=== PATIENT | female | born 2005 | race Caucasian/White ===

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

== ENCOUNTER 2023-02-26 09:50 | Outpatient (REF) | payer OTHER, SELFPAY ==
[2023-02-26 12:12] LABS: Appearance Urine Clear; Color Urine Yellow; Glucose Urine UA Negative (Negative); Leukocyte Esterase Urine Negative (Negative); Nitrite Urine Negative (Negative); PH 8.5 (5.0-9.0); Specific Gravity - Urine 1.015 (1.005-1.025); UMIC TRIGGER UA YES; Urine Blood Moderate (2+) (Negative); Urine Ketones Negative (Negative); Urine Protein Negative (Neg-Trace)
[2023-02-26 12:21] LABS: Bacteria Urine None Seen (None Seen); Hyaline Casts Urine 0-2 /LPF (0-2); RBC Urine 0-2 /HPF (0-2); WBC Urine 0-5 /HPF (0-5)
[2023-02-26 12:29] LABS: Alanine Aminotransferase 14 U/L (0-31); Alkaline Phosphatase 77 U/L (39-117); Anion Gap 11 (12-20); Aspartate Amino Transferase 15 U/L (5-31); Bilirubin Total 0.7 mg/dL (0.0-1.0); Blood Urea Nitrogen 8 mg/dL (9-16); Calcium 8.7 mg/dL (8.4-10.2); Carbon Dioxide 26 mmol/L (22-29); Chloride 108 mmol/L (96-108); Estimated Glomerular Filt Rate > 60; Glucose Fasting 76 mg/dL (60-99); Sodium 141 mmol/L (135-145); Total Protein 6.5 g/dL (6.5-8.0)
[2023-02-26 13:22] LABS: Creatinine Urine 89.31 mg/dL; Microalbum/Creatinine Ratio Ur 7.8 ug/mg cr
[2023-02-26 13:25] LABS: Estimated Average Glucose 88 mg/dL; Hemoglobin A1c % 4.7 %
== END 2023-02-26 09:51 | disposition home or self-care (01) ==
LOC: HO.WFDLDS 09:50
PROVIDERS: Visit Provider Family Medicine
DX: Z00.00 Encounter for general adult medical examination without abnormal findings (principal); E28.2 Polycystic ovarian syndrome; R73.01 Impaired fasting glucose; I10 Essential (primary) hypertension
CPT/HCPCS: 36415; 80053; 81001; 81003; 82043; 83036

== ENCOUNTER 2023-10-15 14:42 | Outpatient (AMB) | payer OTHER, SELFPAY ==
--- NOTE | 2023-10-15 14:49 | A.OFFVIS_ITS ---
Intake Intake Visit Reasons: control consult Linen Room Attendant Required: No Allergies No Known Drug Allergies Allergy (Verified 10/15/23 14:49) Unknown Medication List - Last Reconciled 10/15/23 by Saniya Tse CNM cholecalciferol (vitamin D3) 50 mcg PO DAILY 28 days citalopram 10 mg PO DAILY 30 days Is last menstrual period known: Yes Last menstrual period: 10/14/23 Post menopausal: No HPI control consult HPI Details This is a tele visit that is being done by phone. The patient was scheduled with me at [facility] for control consult however she went to the [facility] OBGYN office instead and the visit was converted to a tele visit to accommodate the patient's need to talk about her control desires. She was not able to do a tele visit by video because she said she was in a car and she said she could not talk in so much detail because there were other people in the car but she did want to at least talk about the basics she said she absolutely wanted a Nexplanon for control and she said she already knew about the side effects and I did review them with her and they mainly include changes to how 1 feels in terms of ones mood and overall sense of self as well as weight gain changes. She said she was okay with that and I also touched on the bleeding side effect changes I told her that if she really wanted this it should absolutely be inserted in the 1st few days of her menstrual cycle while she is bleeding with her period, but that 1st she would need to sign a consent form that allows her insurance company to order the Nexplanon to us. When it arrives at the hospital we will call her and then after that she would call us the day she starts her. Will hopefully get her in the next day or the day after for insertion of her the Nexplanon she did not have any other questions. I told her that she could sign the form either at the main OBGYN office at the [facility] or at our [facility] satellite office any time from 9 to about 3:30. [facility] Medical History PTSD (post-traumatic stress disorder) Social History Household Members: Friend(s) Housing: Apartment Do you presently have visiting nurse or other home services: No Patient Tobacco Use Status: Never used Tobacco e-Cigarette/Vaping Use: Never Used Second Hand Smoke Exposure: No service: No Current occupational status: employed Current occupational exposures/hazards: No Cognitive needs: No Hearing needs: No Vision needs: No Female Reproductive History Menstrual Age of Menarche: 7 Date of last menstrual period: 10/14/23 control method: none Assessment & Plan Assessment & Plan (1) PCOS (polycystic ovarian syndrome): Code(s): E28.2 - Polycystic ovarian syndrome (2) control counseling: Comment: 10/15/23-pt desires nexplanon Code(s): Z30.09 - Encounter for other general counseling and advice on contraception Plan This is a tele visit that is being done by phone. The patient was scheduled with me at [facility] for control consult however she went to the [facility] OBGYN office instead and the visit was converted to a tele visit to accommodate the patient's need to talk about her control desires. She was not able to do a tele visit by video because she said she was in a car and she said she could not talk in so much detail because there were other people in the car but she did want to at least talk about the basics she said she absolutely wanted a Nexplanon for control and she said she already knew about the side effects and I did review them with her and they mainly include changes to how 1 feels in terms of ones mood and overall sense of self as well as weight gain changes. She said she was okay with that and I also touched on the bleeding side effect changes I told her that if she really wanted this it should absolutely be inserted in the 1st few days of her menstrual cycle while she is bleeding with her period, but that 1st she would need to sign a consent form that allows her insurance company to order the Nexplanon to us. When it arrives at the hospital we will call her and then after that she would call us the day she starts her. Will hopefully get her in the next day or the day after for insertion of her the Nexplanon she did not have any other questions. I told her that she could sign the form either at the main OBGYN office at the [facility] or at our [facility] satellite office any time from 9 to about 3:30. Telehealth Telehealth Location of provider rendering services: practice address Location of patient: other Patient Identification confirmed using: Name, : Yes Telehealth method: video Patient verbally consented to treatment: Yes Patient verbally consented to billing insurance company: Yes Patient informed of any privacy concerns related to visit: Yes Coding Level of Care Code Tele Est Pt Level 3 (59103) Diagnoses PCOS (polycystic ovarian syndrome) E28.2 control counseling Z30.09 Time Spent (min) 18 Comment 2 cr/ 6 speaking w pt/10 charting
== END 2023-10-15 15:51 | disposition home or self-care (01) ==
LOC: HO.HWSM 14:42
PROVIDERS: PCP Family Medicine; Visit Provider Advanced Practice Midwife
DX: E28.2 Polycystic ovarian syndrome (principal); Z30.09 Encounter for other general counseling and advice on contraception
CPT/HCPCS: 99213

== ENCOUNTER → 2023-10-15 14:42 | Outpatient (BNVA) | payer OTHER, SELFPAY | PROVIDERS: PCP Family Medicine; Visit Provider Advanced Practice Midwife ==

== ENCOUNTER 2023-12-22 10:11 | Emergency (ER) | payer OTHER, SELFPAY ==
--- NOTE | ~2023-12-22 | US_ITS ---
EXAMINATION: US EXTREMITY, NONVASCULAR CLINICAL INFORMATION: Pain COMPARISON: X-ray of the right foot from the same day TECHNIQUE: Grayscale and color imaging of the medial arch of the right foot in the area of pain FINDINGS: There is an enlarged or swollen adductor hallucis muscle. There may be a small amount of surrounding fluid. US/US extremity nonvascular IMPRESSION: Enlarged or swollen adductor hallucis muscle. Findings would be better evaluated with MRI if symptoms persist.
--- NOTE | ~2023-12-22 | XR_ITS ---
EXAMINATION: XR FOOT, RIGHT CLINICAL INFORMATION: Worsening Right foot pain COMPARISON: Right foot x-ray on 12/18/2023 TECHNIQUE: AP, lateral, and oblique views of the right foot. FINDINGS: BONES: Bony structures are intact. There is no focal bone destruction or periosteal reaction seen. JOINTS: Alignment of joints is normal. SOFT TISSUE: Soft tissue is normal. No radiopaque foreign body or abnormal air collection is seen. XR/XR foot RT 2V IMPRESSION: 1. Unchanged Normal x-rays of right foot. No fracture or dislocation or signs of osteomyelitis are found.
--- NOTE | ~2023-12-22 | US_ITS ---
EXAMINATION: US EXTREMITY, NONVASCULAR CLINICAL INFORMATION: Achilles pain. COMPARISON: X-ray from the same day. TECHNIQUE: Grayscale and color imaging of the Achilles tendon using a linear transducer. FINDINGS: The Achilles tendon is normal in size, contour and echotexture. No abnormal fluid collection adjacent to the Achilles tendon seen. US/US extremity nonvascular IMPRESSION: Unremarkable examination.
[2023-12-22 11:37] VITALS: BP 117/58; PULSE 89; RESP 18; TEMP 36.7; O2SAT 100; BMI 36.8
--- NOTE | 2023-12-22 11:37 | ED.GENADULT ---
HPI - General Adult General Chief complaint: Extremity Injury, Lower Stated complaint: Chronic R Foot Pain No Injury Time Seen by Provider: 12/22/23 11:57 Source: patient Mode of arrival: ambulatory Limitations: no limitations History of Present Illness HPI narrative: 18-year-old female presents with of right-sided foot pain atraumatic since Wednesday, patient was seen at [place] told she had plantar fasciitis given a walking boot pain has been worsening ever since then. Patient reports that her right foot particularly in the middle aspect is red, hard and very painful. She reports significant discomfort with range of motion of foot. Patient has been using crutches and crawling around to get from place to place. Denies numbness and tingling. No blunt trauma. Denies fevers, chills, chest pain, shortness breath, nausea, vomiting, abdominal pain, headache, vision changes, dizziness and weakness. Patient does report she typically walks on her Tippy toes Related Data Previous Rx's Medication Instructions Recorded cholecalciferol (vitamin D3) 50 50 mcg PO DAILY 28 days #28 caps 08/17/22 mcg (2,000 unit) capsule citalopram 10 mg tablet 10 mg PO DAILY 30 days #30 tabs 04/23/23 cephalexin 500 mg tablet 500 mg PO Q6H 7 days #28 tabs 12/22/23 ketorolac 10 mg tablet 10 mg PO TID PRN pain 5 days #15 12/22/23 tabs Allergies Allergy/AdvReac Type Severity Reaction Status Date / Time No Known Drug Allergies Allergy Unknown Verified 10/15/23 14:49 Review of Systems Review of Systems: Yes all other systems are reviewed and are negative [facility] Past Medical History Attestation statement: The following information was validated with the patient. Source: old records reviewed and nursing notes reviewed Medical History PTSD (post-traumatic stress disorder) Social History Social History Household Members: Friend(s) Housing: Apartment Do you presently have visiting nurse or other home services: No Patient Tobacco Use Status: Never used Tobacco e-Cigarette/Vaping Use: Never Used Second Hand Smoke Exposure: No Advance Directives: No Advance Directives Information Provided: No service: No Current occupational status: employed Current occupational exposures/hazards: No Cognitive needs: No Hearing needs: No Vision needs: No Physical Exam ED Vital Signs: Vital Signs - 24 hr 12/22/23 11:37 Temperature 98.1 F Pulse Rate 89 Respiratory Rate 18 Blood Pressure 117/58 L Pulse Oximetry 100 Oxygen Delivery Method Room Air BMI result Body Mass Index 36.8 vss Appearance: Alert.? Oriented X3.? No acute distress.? Head: Normocephalic, atraumatic, no step-offs or deformities Eyes: Pupils equal, round and reactive to light.? Neck: Normal inspection.? Neck supple.? CVS: Normal heart rate and rhythm.? Pulses normal.? Respiratory: No respiratory distress.? Breath sounds normal.? Skin: Skin warm and dry.? Normal skin color.? Normal skin turgor.? Extremities: No lower extremity edema.? No calf ttp. 5/5 strength to bilateral upper and lower extremities + 2+ Dp,AT,PT pulses equal and b/l discoloration to right medial aspect of foot with overlying TTP and induration. Normal sensation distally. Cap refil < 2 seconds. Back: No midline tenderness, no C-spine tenderness, full range of motion, no CVA tenderness bilaterally Neuro: Oriented X 3.? No motor deficit.? No sensory deficit. CN 2-12 intact Course Course Course Narrative: This is an RME: Additional HPI, ROS, PE not included below will be deferred to primary provider. This is a [age]-female presenting to the ER with complaints of right foot pain x 6 days. She was seen at [facility] 6 days where she was diagnosed with plantar fasciitis. She states that her foot is becoming more swollen and painful. She was prescribed baclofen and prednisone which he has been taking for several days without any relief. Patient has exquisite tenderness to the plantar aspect of her foot with induration and swelling. Plan: X-ray, basic labs Reevaluation(s) Reevaluation #1: White count of 15.0 with shift. Chemistry unremarkable. Normal CRP. ESR pending. Ultrasound pending. Time: 13:03 Reevaluation #2: X-ray of foot unchanged, normal x-rays of right foot. No fracture dislocation. No signs of osteomyelitis. Patient evaluated by my attending who agrees patient should be followed by Podiatry, as soon as possible. I also did discuss this case with ortho ELICIA Stewart who tells me unsure what this could be, recommends nonweightbearing, crutches, boot. And ortho follow-up. Time: 14:26 Medications Administered Discontinued Medications Generic Name Dose Route Start Last Admin Trade Name Rakeshq PRN Reason Stop Dose Admin Ketorolac Tromethamine 30 mg 12/22/23 12:40 12/22/23 13:03 Ketorolac Tromethamine 30 Mg/Ml Vial IM 12/22/23 12:41 30 mg ONCE ONE Administration Medical Decision Making Medical Decision Making [facility] Narrative: 1259 18 year old female presents w/ atruamatic r foot pain since wednesday. PE w/ No lower extremity edema.? No calf ttp. 5/5 strength to bilateral upper and lower extremities + 2+ Dp,AT,PT pulses equal and b/l discoloration to right medial aspect of foot with overlying TTP and induration. Normal sensation distally. Cap refil < 2 seconds. Hx and PE concerning for ligament or tendon tear vs contusion vs cellulitis. Less likely arterial or vascular occlusion. Unlikely NV compromise, fx, dislocation, necrotizing infection Plan- imaging, labs. Differential Diagnosis Differential Diagnoses: The differential diagnosis associated with the presentation includes Hx and PE concerning for ligament or tendon tear vs contusion vs cellulitis. Less likely arterial or vascular occlusion. Unlikely NV compromise, fx, dislocation, necrotizing infection Admission/Observation Consideration of admission/observation: Escalation of care including admission/observation considered Lab Data [facility] Lab Attestation statement: I reviewed the patient's lab results. 12/22/23 12:23 12/22/23 12:23 Labs: Lab Results 12/22/23 Range/Units 12:23 WBC 15.0 H (4.8-10.8) X10*3/uL RBC 5.16 (4.20-5.50) X10*6/uL Hgb 14.7 (12.0-16.0) g/dl Hct 42.3 (37.0-47.0) % MCV 82.0 (80.0-98.0) fL MCH 28.5 (27.0-33.0) pg MCHC 34.8 (31.0-35.0) g/dl RDW 13.8 (11.0-16.0) % Plt Count 322 (160-400) X10*3/uL MPV 9.1 L (9.4-12.3) fL Immature Gran % (Auto) 0.3 (0.0-0.4) % Neut % (Auto) 90.4 H (45-73) % Lymph % (Auto) 8.0 L (20-40) % [place] % (Auto) 1.1 L (2-11) % Eos % (Auto) 0.1 (0-4) % Baso % (Auto) 0.1 (0-2) % Lymph # (Auto) 1.2 (1.2-4.9) X10*3/uL [place] # (Auto) 0.2 (0.1-1.2) X10*3/uL Eos # (Auto) 0.0 (0.0-0.4) X10*3/uL Baso # (Auto) 0.0 (0.0-0.2) X10*3/uL Abs Immat Gran (auto) 0.05 H (0.00-0.03) X10*3/uL Absolute Neuts (auto) 13.6 H (2.0-8.3) x10*3/uL Absolute Nucleated RBC 0.000 (0.0-0.012) X10*3/uL Nucleated RBC % (auto) 0.0 (0.0-0.2) /100WBC Smear Tech's Comments VERIFIED ESR 5 (0-20) MM/HR PT 13.2 (11.1-13.3) SEC INR 1.1 (0.9-1.1) Sodium 141 (135-145) mmol/L Potassium 3.6 (3.3-5.1) mmol/L Chloride 111 H (96-108) mmol/L Carbon Dioxide 23 (22-29) mmol/L Anion Gap 11 L (12-20) BUN 13 (9-16) mg/dL Creatinine 0.70 (0.5-1.4) mg/dL Estim Creat Clear Calc 109.2 Estimated GFR > 60 Random Glucose 109 (60-115) mg/dL Uric Acid 3.2 (2.4-5.7) mg/dL Calcium 8.9 (8.4-10.2) mg/dL Total Bilirubin 0.5 (0.0-1.0) mg/dL Direct Bilirubin 0.1 (0.0-0.5) mg/dL AST 31 (5-31) U/L ALT 27 (0-31) U/L Alkaline Phosphatase 62 (39-117) U/L C-Reactive Protein < 0.10 (< or = 0.50) mg/dL Total Protein 7.4 (6.5-8.0) g/dL Albumin 4.3 (3.5-5.0) g/dL Independent Interpretation I performed an independent interpretation of an: Ultrasound Radiology Impression Discussion of test interpretation with radiology: I have reviewed the radiologist's reading. Critical Care Time Critical Care Time Critical Care Time: Yes Total Critical Care Time: 35 Attestation: I attest to this time spent taking care of the patient, obtaining history, physical, reviewing labs, imaging, speaking to my attending, speaking to specialist. Discharge Plan Discharge Clinical Impression: Acute pain of right foot, Enlarged muscle Patient Disposition: Home, Self-Care Instructions: Arthralgia (ED) Additional Instructions: Take your medications as prescribed. If you were prescribed antibiotics today, it is important that you take your medication to their entirety, do not skip any doses, do not finish them early. Follow-up with your primary care provider this week. Return to the emergency department with new or worsening symptoms. Such as fevers, chills, chest pain, shortness of breath, nausea, vomiting, dizziness, headache, vision changes, lethargy In case of emergency call 911 Follow up with podiatry and ortho Toradol has been sent to your pharmacy, you tolerated this well in the department. Please take this as prescribed do not take this with ibuprofen, or other NSAIDs, do not mix this with alcohol. Side effects of this medication including increased risk for bleeding and possible kidney injury. [facility] [address] [place] [id number] Prescriptions: New ketorolac 10 mg tablet 10 mg PO TID PRN (Reason: pain) 5 Days Qty: 15 0RF cephalexin 500 mg tablet 500 mg PO Q6H 7 Days Qty: 28 0RF No Action citalopram 10 mg tablet 10 mg PO DAILY 30 Days Qty: 30 2RF cholecalciferol (vitamin D3) 50 mcg (2,000 unit) capsule 50 mcg PO DAILY 28 Days Qty: 28 4RF Referrals: [facility] [Provider Group] - 1 day Jaxson Edwards MD [Primary Care Provider] - 2 days Stand Alone Forms: Work/School Release
[2023-12-22 12:31] LABS: Basophils Percent Auto 0.1 % (0-2); Eosinophils Percent Auto 0.1 % (0-4); Hematocrit 42.3 % (37.0-47.0); Hemoglobin 14.7 g/dl (12.0-16.0); Imm Gran Abs Auto 0.05 X10*3/uL (0.00-0.03); Imm Gran Pct Auto 0.3 % (0.0-0.4); Lymphocytes Absolute Auto 1.2 X10*3/uL (1.2-4.9); MANUAL DIFF FLAG SCAN; Mean Corpuscular HGB Conc 34.8 g/dl (31.0-35.0); Mean Corpuscular Hemoglobin 28.5 pg (27.0-33.0); Mean Platelet Volume 9.1 fL (9.4-12.3); Monocytes Absolute Auto 0.2 X10*3/uL (0.1-1.2); Monocytes Percent Auto 1.1 % (2-11); Neutrophils Absolute Auto 13.6 x10*3/uL (2.0-8.3); Neutrophils Percent Auto 90.4 % (45-73); Platelet Count 322 X10*3/uL (160-400); Red Blood Count 5.16 X10*6/uL (4.20-5.50); Red Cell Distribution Width 13.8 % (11.0-16.0); SCAN SMEAR FLAG 1
[2023-12-22 12:41] LABS: INTERNATIONAL NORM RATIO 1.1 (0.9-1.1); Prothrombin Time 13.2 SEC (11.1-13.3)
[2023-12-22 12:46] LABS: Alanine Aminotransferase 27 U/L (0-31); Albumin Level 4.3 g/dL (3.5-5.0); Alkaline Phosphatase 62 U/L (39-117); Anion Gap 11 (12-20); Aspartate Amino Transferase 31 U/L (5-31); Bilirubin Direct 0.1 mg/dL (0.0-0.5); Bilirubin Total 0.5 mg/dL (0.0-1.0); Blood Urea Nitrogen 13 mg/dL (9-16); C Reactive Protein < 0.10 mg/dL (< or = 0.50); Calcium 8.9 mg/dL (8.4-10.2); Carbon Dioxide 23 mmol/L (22-29); Chloride 111 mmol/L (96-108); Creatinine Clr Calc Pharmacy 109.2; Estimated Glomerular Filt Rate > 60; Glucose Random 109 mg/dL (60-115); Potassium 3.6 mmol/L (3.3-5.1); Sodium 141 mmol/L (135-145); Total Protein 7.4 g/dL (6.5-8.0); Uric Acid 3.2 mg/dL (2.4-5.7)
[2023-12-22 12:50] LABS: SLIDE REVIEW VERIFIED
[2023-12-22] MEDS: Ketorolac Tromethamine 30 MG/ML VIAL IM (13:03)
[2023-12-22 14:03] LABS: Erythrocyte Sedimentation Rate 5 MM/HR (0-20)
[2023-12-22 16:24] VITALS: BP 113/70; PULSE 86; RESP 16; TEMP 37.1; O2SAT 98
== END 2023-12-22 16:26 | disposition home or self-care (01) ==
PROVIDERS: Physician Assistant; Physician Assistant Medical; Emergency Provider Student in an Organized Health Care Education/Training Program; PCP Family Medicine
DX: M79.671 Pain in right foot (principal); M72.2 Plantar fascial fibromatosis; M79.89 Other specified soft tissue disorders
CPT/HCPCS: 36415; 73620; 76882; 80048; 80076; 84550; 85025; 85610; 85652; 86140; 96372; 99283; 99284; J1885

== ENCOUNTER 2024-04-26 15:15 | Outpatient (AMB) | payer OTHER, SELFPAY ==
--- NOTE | 2024-04-26 15:24 | MHC.PC.OV ---
Vital Signs 04/26/24 15:27 Height 4 ft 9 in Weight 177 lb 2 oz BMI 38.3 BP 112/72 Blood Pressure Location Lt brachial Position Sitting Respiration 14 Pulse 88 Pulse Source Pulse Oximeter Temp 98.2 F Temp Source Temporal Artery Scan Pulse Oximetry (%) 99 Oxygen Delivery Method Room Air Intake Visit Reasons: CPE medicaid ride renewal Intake Note: Physical Pad Machine Operator Required: No Is last menstrual period known: Yes Last menstrual period: 04/26/24 Allergies No Known Drug Allergies Allergy (Verified 04/26/24 15:25) Unknown Medication List - Last Reconciled 04/26/24 by Viri Ceja PA-C cholecalciferol (vitamin D3) 50 mcg PO DAILY 28 days citalopram 10 mg PO DAILY 30 days Tobacco use date assessed: 11/27/22 HPI CPE medicaid ride renewal HPI Details Pt is a 18 y/o female who presents today for a cpe. Psych: She is on celexa 10 mg for anxiety and depression. She states it is very helpful. She denies any SI/HI. She has been on this for 1.5 years. She would like to see a therapist/psychiatrist for possible diagnosis of ADD. She states that she has difficulty concentrating. Celexa has been helpful. Endo: has a hx of pcos and was previously on metformin. 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[employer] [facility] Medical History PTSD (post-traumatic stress disorder) Social History (Updated 04/26/24 @ 15:27 by Radha Naranjo CMA) Household Members: Friend(s) Housing: Apartment Do you presently have visiting nurse or other home services: No Patient Tobacco Use Status: Never used Tobacco e-Cigarette/Vaping Use: Never Used Second Hand Smoke Exposure: No service: No Current occupational status: employed Current occupational exposures/hazards: No Cognitive needs: No Hearing needs: No Vision needs: No Female Reproductive History Menstrual Age of Menarche: 7 Date of last menstrual period: 04/26/24 Questionnaire PHQ-9 Over the last 2 weeks, how often have you been bothered by any of the following problems? 1. Little interest or pleasure in doing things: not at all 2. Feeling down, depressed, or hopeless: not at all 3. Trouble falling or staying asleep, or sleeping too much: several days 4. Feeling tired or having little energy: several days 5. Poor appetite or overeating: more than half the days 6. Feeling bad about yourself - or that you are a failure or have let yourself or your family down: not at all 7. Trouble concentrating on things, such as reading the newspaper or watching television: several days 8. Moving or speaking so slowly that other people could have noticed. Or the opposite - being so fidgety or restless that you have been moving around a lot more than usual: several days 9. Thoughts that you would be better off or of hurting yourself in some way: not at all Total score: 6 Depression Screening Interpretation: Positive Depression Screening Done: Yes 58440 - PHQ-9 Billing: Yes Source: Developed by Drs. Jh Nelson, Catalina Graham, Akash Singer and colleagues, with an educational silvio from [employer]. Thrive Questionnaire Date Thrive assessed: 04/26/24 I am a: Patient What is your living situation today?: I have a steady place to live Within the past 12 months, did the food you bought not last and you didn't have the money to get more?: Sometimes True Within the past 12 months, did you worry whether your food would run out before you got money to buy more?: Sometimes True Do you have trouble paying for medicines?: Yes Do you have trouble getting transportation to medical appointments?: Yes Do you have trouble paying your heating and electricity bill?: No Do you have trouble taking care of your child, family member or friend?: No Do you have trouble with day-to-day activities such as bathing, preparing meals, shopping, managing finances, etc.?: No Are you currently unemployed and looking for a job?: No Are you interested in more education?: Yes Please select the resources that you would like help with: Food, Paying for medicine, Transportation, Utilities and Education Currently or been in a relationship where the following occur: No concerns reported THRIVE Score: 3 AUDIT C Alcohol Use Questionnaire (AUDIT-C) 1. How often do you have a drink containing alcohol?: Monthly or less 2. How many drinks containing alcohol do you have on a typical day when you are drinking?: 1 or 2 3. How often do you have six or more drinks on one occasion?: Never Total Score: 1 KATIUSKA-7 AMB Questionnaire KATIUSKA-7 Date KATIUSKA - 7 assessed: 11/27/22 Feeling nervous, anxious, or on edge: 0 = Not at all Not being able to stop or control worryin = Not at all Worrying too much about different things: 1 = Several days Trouble relaxin = Several days Being so restless that it is hard to sit still: 0 = Not at all Becoming easily annoyed or irritable: 2 = More than half the days Feeling afraid as if something awful might happen: 0 = Not at all Total KATIUSKA-7 score (0-4 normal; 5-9 mild; 10-14 moderate; 15-21 severe): 4 Source: Developed by Drs. Jh Nelson, Catalina Graham, Akash Singer and colleagues, with an educational silvio from [employer]. KATIUSKA-7 Assessment Billing KATIUSKA-7 Assessment Tool: KATIUSKA-7 Assessment 78140 Physical exam (Primary Care) Vital Signs: Last Vital Signs Temp 98.2 F 04/26/24 15:27 Pulse 88 04/26/24 15:27 Resp 14 04/26/24 15:27 BP 112/72 04/26/24 15:27 Pulse Ox 99 04/26/24 15:27 Oxygen Delivery Method Room Air 04/26/24 15:27 BMI result Body Mass Index 38.3 Tobacco/Smoking Status: Tobacco use Status Tobacco use date assessed 11/27/22 04/26/24 15:29 Patient Tobacco Use Status Never used Tobacco 04/26/24 15:29 e-Cigarette/Vaping Use Never Used 04/26/24 15:29 PHQ-9: PHQ-9 Score PHQ-9: Total score 6 04/26/24 15:35 Depression Screening Interpretation: Positive Thrive Assessment: Date of Thrive Assessment Date Thrive assessed 04/26/24 04/26/24 15:35 Currently or been in a relationship where the following occur: No concerns reported Const Orientation/consciousness: patient oriented x3 HENMT Ears: hearing grossly normal bilaterally and TM's normal bilaterally General nose exam: No nasal polyps present Face and sinus: Yes sinuses nontender Mouth: Normal oral and palatal mucosa present Eyes Pupils: Equal, round and reactive pupils present EOM: EOMs intact bilaterally Neck Neck: Yes full ROM and Yes no lymphadenopathy Thyroid: Thyroid normal Chest Chest palpation & inspection: normal inspection of the chest Resp Auscultation: clear to auscultation bilaterally Cardio Rate: regular rate Rhythm: regular rhythm Heart sounds: S1 normal heart sound present and S2 normal heart sound present Peripheral pulses: Peripheral pulses 2+ throughout GI Other: Soft, nontender Auscultation: normal bowel sounds Rectal Exam - Female: deferred General: Yes no CVA tenderness Back/Spine/Pelvis Other: Nontender Back: no CVA tenderness Skin General skin exam: no rashes or lesions noted Neuro General: patient oriented x3, gait normal, CN's II-XI intact bilaterally and deep tendon reflexes 2+ bilaterally Cranial nerves: Yes Equal, round and reactive pupils present Motor exam (neuro): 5/5 motor strength present throughout Sensory Exam: double simultaneous stimulation for sensation normal Coordination: [id number] test normal and Romberg test negative Extrem General: Yes normal to inspection and Yes full ROM Psych Affect: normal affect Attitude: cooperative Thought process: Normal thought process present Thought content: Normal thought content present Insight: Good insight present (Psych) Judgement: Good judgement present (Psych) Assessment and Plan Assessment & Plan (1) Routine general medical examination at a health care facility: Code(s): Z00.00 - Encounter for general adult medical examination without abnormal findings Plan: Health maintenance reviewed. Labs ordered today. (2) Depression with anxiety: Code(s): F41.8 - Other specified anxiety disorders Plan: Continue Celexa. Referral to Behavioral Health. (3) Difficulty concentrating: Code(s): R41.840 - Attention and concentration deficit Plan: As above. Endorses mild improvement with Celexa. (4) PCOS (polycystic ovarian syndrome): Code(s): E28.2 - Polycystic ovarian syndrome Plan: Continue following with medical appointment scheduler. We will start on metformin. Orders: Orders Lipid Panel Today E28.2 - Polycystic ovarian syndrome, E66.9 - Obesity, unspecified, F41.8 - Other specified anxiety disorders Comprehensive [place]. Panel Fast Today E28.2 - Polycystic ovarian syndrome, E66.9 - Obesity, unspecified, F41.8 - Other specified anxiety disorders Complete Blood Count Auto Diff Today E28.2 - Polycystic ovarian syndrome, E66.9 - Obesity, unspecified, F41.8 - Other specified anxiety disorders TSH reflex Free T4 Today E28.2 - Polycystic ovarian syndrome, E66.9 - Obesity, unspecified, F41.8 - Other specified anxiety disorders Hemoglobin A1c Today E28.2 - Polycystic ovarian syndrome, E66.9 - Obesity, unspecified, F41.8 - Other specified anxiety disorders Referrals Behavioral Health Referral F41.8 - Other specified anxiety disorders, R41.840 - Attention and concentration deficit Medications: New metformin ER 500 mg PO DAILY 90 tabs 2RF Coding Level of Care Code Est Pt Prev Care 18-39y(74114) Diagnoses Routine general medical examination at a health care facility Z00.00 Depression with anxiety F41.8 Difficulty concentrating R41.840 PCOS (polycystic ovarian syndrome) E28.2 Additional Codes KATIUSKA-7 Assessment Billing - KATIUSKA-7 Assessment Tool: KATIUSKA-7 Assessment 61353 ([id number])
[2024-04-26 15:27] VITALS: BP 112/72; PULSE 88; RESP 14; TEMP 36.8; O2SAT 99; BMI 38.3
== END 2024-04-26 16:18 | disposition home or self-care (01) ==
PROVIDERS: PCP Family Medicine; Visit Provider Physician Assistant
DX: Z00.00 Encounter for general adult medical examination without abnormal findings (principal); F41.8 Other specified anxiety disorders; R41.840 Attention and concentration deficit; E28.2 Polycystic ovarian syndrome
CPT/HCPCS: 96127; 99395

== ENCOUNTER 2024-05-19 15:50 | Outpatient (AMB) | payer OTHER, SELFPAY ==
[2024-05-19 15:52] VITALS: BP 110/66; BMI 38.3
--- NOTE | 2024-05-19 15:52 | A.OFFVIS_ITS ---
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 She is forgetful and does not feel at this time she would be appetite be consistent with OCPs. History of PCOS, reports cycles are fairly regular off by 5-10 days usually. Currently sexually active and consistently using condoms. She is interested in the Nexplanon device. She denies any contraindications to control such as: migraines with aura, history of DVT or pulmonary emboli, high blood pressure, liver disease, thrombolic disorders, Lupus, +CHINEDU, breast cancer, or smoking. [facility] Medical History (Updated 05/19/24 @ 15:54 by GEORGE Olguin) GERD (gastroesophageal reflux disease) Major depression Anxiety PCOS (polycystic ovarian syndrome) PTSD (post-traumatic stress disorder) Social History (Updated 05/19/24 @ 15:54 by GEORGE Olguin) Household Members: Friend(s) Housing: Apartment Do you presently have visiting nurse or other home services: No Patient Tobacco Use Status: Never used Tobacco e-Cigarette/Vaping Use: Never Used Second Hand Smoke Exposure: No service: No Current occupational status: employed Current occupational exposures/hazards: No Sexually active: Yes Sexual orientation: Straight/Heterosexual Gender identity: Female Cognitive needs: No Hearing needs: No Vision needs: No Female Reproductive History Menstrual Age of Menarche: 7 Duration of menses: 3-5 days Date of last menstrual period: 04/21/24 control method: none Total pregnancies: 0 Review of Systems Const All systems reviewed & are unremarkable except as noted in HPI and below Endo Reports no additional complaints Physical Exam Vital Signs: Last Vital Signs BP 110/66 05/19/24 15:52 BMI result Body Mass Index 38.3 Const General: cooperative, healthy appearing and no acute distress Psych Appearance: well kempt Attitude: cooperative Thought process: Normal thought process present Assessment & Plan Assessment & Plan (1) Counseling for initiation of control method: Code(s): Z30. - Encounter for other general counseling and advice on contraception Plan Discussed: Review of control methods with the CDC efficacy information. Nexplanon risks benefits and side effects reviewed and she understands that there can be some unscheduled, persistent spotting with the device and also weight gain. Plan Nexplanon prior authorization form signed today. Advised to return to the office in the 1st 5 days of her menstrual cycle once a approval is complete in the device has been delivered to the pharmacy staff will notify her of that. Use of condoms consistently. Nexplanon booklet dispensed. PCOS, hirsutism, the role of spironolactone. Possible referral to [facility] in the future. Diet and overall health wellness. She has a good grasp of dietary intake and needs and has lost weight significantly in the past. Admits that it is expensive divide the healthy foods that she would like to eat and also does enjoy socializing and eating foods with her friends. She is planning to do fa sting labs soon. Currently taking her vitamin-D weekly. All of her questions and concerns were addressed to the best of my ability and shared decision making. She is agreeable to the plan of care. This note is constructed using voice recognition software. While every effort has been made to ensure accuracy, annealer errors may have been included. Coding Level of Care Code Est Pt Level 3 (99655) Diagnoses Counseling for initiation of control method Z30.
== END 2024-05-19 16:28 | disposition home or self-care (01) ==
LOC: HO.HWS 15:50
PROVIDERS: PCP Family Medicine; Visit Provider Advanced Practice Midwife
DX: Z30.09 Encounter for other general counseling and advice on contraception (principal)
CPT/HCPCS: 99213

== ENCOUNTER → 2024-05-19 15:50 | Outpatient (BNVA) | payer OTHER, SELFPAY | PROVIDERS: PCP Family Medicine; Visit Provider Advanced Practice Midwife | DX: Z30.09 Encounter for other general counseling and advice on contraception (principal) | CPT/HCPCS: 99212 ==

== ENCOUNTER 2025-09-01 11:50 | Emergency (ER) | payer OTHER, SELFPAY ==
--- NOTE | ~2025-09-01 | XR_ITS ---
CLINICAL HISTORY: L sided chest lung pain Two views of the chest. COMPARISON: None provided. FINDINGS: Normal heart and mediastinal contours. No consolidation. No pleural effusion or pneumothorax. No acute fracture. IMPRESSION: 1. No consolidation. This document has been electronically signed by: Ho Dillon MD on 09/01/2025 14:20:42
--- NOTE | ~2025-09-01 | CT_ITS ---
CLINICAL HISTORY: left side abdominal pain CT abdomen and pelvis with IV contrast. COMPARISON: None provided. FINDINGS: Partially visualized lung bases are unremarkable. No focal hepatic lesion. Normal gallbladder. Normal spleen. Normal pancreas. Normal adrenal glands. Symmetric renal enhancement. No hydronephrosis. Normal appendix. Mild colonic stool burden. No bowel obstruction. No mesenteric or retroperitoneal lymphadenopathy. Normal abdominal aorta. Normal appearance of the urinary bladder. No adnexal mass. Small amount of free fluid present within the posterior cul-de-sac. No acute fracture or suspicious bone lesion. IMPRESSION: 1. No cause for patient's symptoms identified. No evidence of appendicitis, bowel obstruction or diverticulitis. 2. Small amount of free fluid present within the posterior cul-de-sac, likely physiologic. This document has been electronically signed by: Ho Dillon MD on 09/01/2025 18:10:09
[2025-09-01 12:01] VITALS: BP 109/72; PULSE 112; RESP 18; TEMP 36.6; O2SAT 98; BMI 35.3
--- NOTE | 2025-09-01 12:03 | ECG_ITS ---
Test Reason : LEFT UPPER ABD PAIN Blood Pressure : */* mmHG Vent. Rate : 113 BPM Atrial Rate : 113 BPM P-R Int : 130 ms QRS Dur : 92 ms QT Int : 320 ms P-R-T Axes : 52 30 38 degrees QTcB Int : 438 ms Sinus tachycardia Nonspecific ST and T wave abnormality Abnormal ECG When compared with ECG of 25-Jan-2022 18:29, No significant changes seen Referred By: Clair Reddy Electronically Signed By: MICHELE STOCK
--- NOTE | 2025-09-01 12:03 | ED.ABDPAIN ---
HPI - Abdominal Pain General Chief Complaint: Abdominal Pain Stated Complaint: upper abd pain Time Seen by Provider: 09/01/25 13:52 Source: patient Mode of arrival: ambulatory Limitations: no limitations History of Present Illness HPI narrative: This is 20 years old female presented to the emergency department with a chief complaint of left upper quadrant abdominal pain since 04:00 pain is worse when she takes a deep breath, she has no nausea no vomiting MD elicited complaint: abdominal pain Pertinent past history: none Onset (ago): hour(s) (8) Pain Consistency: constant Location: LUQ Severity: moderate Quality: aching Radiation: none Migration to: no migration Exacerbating factors: nothing Relieving factors: nothing Related Data Patient : No Previous Rx's ?Medication ?Instructions ?Recorded cholecalciferol (vitamin D3) 50 50 mcg PO DAILY 28 days #28 caps 08/17/22 mcg (2,000 unit) capsule metformin 500 mg tablet,extended 500 mg PO DAILY #90 tabs 02/01/25 release 24 hr citalopram 10 mg tablet 10 mg PO DAILY 90 days #90 tabs 07/12/25 Allergies Allergy/AdvReac Type Severity Reaction Status Date / Time No Known Drug Allergies Allergy Unknown Verified 09/01/25 12:02 Review of Systems Review of Systems Yes all other systems are reviewed and are negative Cardiovascular: Reports no additional cardiovascular complaints [facility] Past Medical History Attestation statement: The following information was validated with the patient. [facility] Narrative: Denies any major medical problems, she has a history of only anxiety Medical History GERD (gastroesophageal reflux disease) Major depression Anxiety PCOS (polycystic ovarian syndrome) PTSD (post-traumatic stress disorder) Social History Social History Household Members: Friend(s) Housing: Apartment Do you presently have visiting nurse or other home services: No Patient Tobacco Use Status: Never used Tobacco Smoked in Last 30 Days: Yes e-Cigarette/Vaping Use: Never Used Second Hand Smoke Exposure: No Use of substances other than those prescribed or required for medical reasons: No Advance Directives: No Advance Directives Information Provided: No Do you have a plan to hurt others: No Plan Patient : No service: No Current occupational status: employed Current occupational exposures/hazards: No Sexual orientation: Straight/Heterosexual Gender identity: Female Cognitive needs: No Hearing needs: No Vision needs: No Physical Exam ED Exam Exam: No acute distress comfortable in the stretcher Vital Signs: Vital Signs - 24 hr 09/01/25 12:01 09/01/25 14:33 09/01/25 18:22 Temperature 98 F 98.2 F 98.2 F Pulse Rate 112 H 100 93 Respiratory Rate 18 16 15 Blood Pressure 109/72 118/62 104/59 L Pulse Oximetry 98 98 98 Oxygen Delivery Method Room Air Room Air Room Air BMI result Body Mass Index 35.3 Const General: cooperative Nutritional Appearance: average body habitus Orientation/consciousness: patient oriented x3 HENMT Head: Yes normal to inspection Mouth: Normal oral and palatal mucosa present Throat: Yes posterior oropharynx normal Neck Neck: Yes normal visual inspection and Yes full ROM Chest Chest palpation & inspection: normal inspection of the chest Resp Effort & Inspection: normal respiratory effort Auscultation: clear to auscultation bilaterally Cardio Rate: regular rate Rhythm: regular rhythm GI Inspection: Yes normal to inspection Palpation (GI): Soft to palpation, not firm, nontender and no guarding Auscultation: normal bowel sounds Skin General skin exam: no rashes or lesions noted and elasticity normal Lesions: no lesions Rashes: no rashes Neuro General: patient oriented x3 Course Course Course Narrative: This is a Rapid Medical Examination (RME) performed by Keeley Reddy PA-C in triage. Full HPI, ROS, assessment and treatment plan per primary provider in the Main ED. Hx: 20 yo F here w/ sharp left upper quadrant pain radiating to L chest/shoulder, worse w/ breathing x 0400 yesterday. pain is constant and worsening. no OCP use, no recent travel/long car rides, no LE pain. Plan: labs, ekg, cxr Medical Decision Making Medical Decision Making MDM Narrative: Patient presented with left upper quadrant abdominal pain worse when she takes a deep breath we will obtain labs imaging reassess CT scan of the abdomen pelvis was done. Radiology's interpretation CT scan is grossly negative there is no obstruction there is no abscess is no perforation. Patient well-appearing. CT scan showed no evidence of appendicitis. In stable condition will discharge home. Differential Diagnosis Differential Diagnoses: The differential diagnosis associated with the presentation includes Colitis/diverticulitis/musculoskeletal pain Admission/Observation Consideration of admission/observation: Escalation of care including admission/observation considered Lab Data 09/01/25 12:19 09/01/25 12:19 Labs: Lab Results 09/01/25 09/01/25 Range/Units 12:19 14:27 WBC 10.7 (4.8-10.8) X10*3/uL RBC 5.15 (4.20-5.50) X10*6/uL Hgb 14.6 (12.0-16.0) g/dl Hct 42.4 (37.0-47.0) % MCV 82.3 (80.0-98.0) fL MCH 28.3 (27.0-33.0) pg MCHC 34.4 (31.0-35.0) g/dl RDW 12.8 (11.0-16.0) % Plt Count 313 (160-400) X10*3/uL MPV 9.3 L (9.4-12.3) fL Immature Gran % (Auto) 0.3 (0.0-0.4) % Neut % (Auto) 76.9 H (45-73) % Lymph % (Auto) 14.4 L (20-40) % Gulf % (Auto) 5.9 (2-11) % Eos % (Auto) 2.2 (0-4) % Baso % (Auto) 0.3 (0-2) % Lymph # (Auto) 1.5 (1.2-4.9) X10*3/uL [place] # (Auto) 0.6 (0.1-1.2) X10*3/uL Eos # (Auto) 0.2 (0.0-0.4) X10*3/uL Baso # (Auto) 0.0 (0.0-0.2) X10*3/uL Abs Immat Gran (auto) 0.03 (0.00-0.03) X10*3/uL Absolute Neuts (auto) 8.2 (2.0-8.3) x10*3/uL Absolute Nucleated RBC 0.000 (0.0-0.012) X10*3/uL Nucleated RBC % (auto) 0.0 (0.0-0.2) /100WBC D-Dimer High Sensitivty 201 NG/ML Sodium 141 (135-145) mmol/L Potassium 3.3 (3.3-5.1) mmol/L Chloride 110 H (96-108) mmol/L Carbon Dioxide 26 (22-29) mmol/L Anion Gap 8 L (12-20) BUN 9 (9-16) mg/dL Creatinine 0.60 (0.5-1.4) mg/dL Estim Creat Clear Calc 122.4 Estimated GFR > 60 Random Glucose 127 H (60-115) mg/dL Calcium 9.1 (8.4-10.2) mg/dL Magnesium 2.0 (1.6-2.6) mg/dL Total Bilirubin 0.6 (0.0-1.0) mg/dL AST 17 (5-31) U/L ALT 26 (0-31) U/L Alkaline Phosphatase 77 (39-117) U/L Troponin I High Sens < 2.7 (<3.5-17.0) ng/L Total Protein 7.4 (6.5-8.0) g/dL Albumin 4.8 (3.5-5.0) g/dL Lipase 17 (8-78) U/L Beta HCG, Quant < 2 mIU/mL Medications Administered Discontinued Medications Generic Name Dose Route Start Last Admin Trade Name Freq PRN Reason Stop Dose Admin Iohexol 100 ml 09/01/25 16:09 09/01/25 16:09 Iohexol 350 Mg/Ml 100 Ml Infus..Btl IV 09/01/25 16:10 85 ml ONCE ONE Administration Discharge Plan Discharge Clinical Impression: Abdominal pain Qualifiers: Abdominal location: left upper quadrant Qualified Code(s): R10.12 - Left upper quadrant pain Patient Disposition: Home, Self-Care Instructions: Abdominal Pain (ED) Prescriptions: No Action metformin 500 mg tablet extended release 24 hr 500 mg PO DAILY Qty: 90 2RF citalopram 10 mg tablet 10 mg PO DAILY 90 Days Qty: 90 3RF cholecalciferol (vitamin D3) 50 mcg (2,000 unit) capsule 50 mcg PO DAILY 28 Days Qty: 28 4RF Referrals: Jaxson Edwards MD [Primary Care Provider, Internal Medicine] - 09/05/25 Print Language: [place]
[2025-09-01 12:31] LABS: MANUAL DIFF FLAG NO
[2025-09-01 12:34] LABS: Hematocrit 42.4 % (37.0-47.0); Hemoglobin 14.6 g/dl (12.0-16.0); Imm Gran Abs Auto 0.03 X10*3/uL (0.00-0.03); Imm Gran Pct Auto 0.3 % (0.0-0.4); Lymphocytes Absolute Auto 1.5 X10*3/uL (1.2-4.9); Mean Corpuscular HGB Conc 34.4 g/dl (31.0-35.0); Mean Corpuscular Hemoglobin 28.3 pg (27.0-33.0); Mean Corpuscular Volume 82.3 fL (80.0-98.0); NRBC Abs Auto 0.000 X10*3/uL (0.0-0.012); NRBC Pct Auto 0.0 /100WBC (0.0-0.2); Platelet Count 313 X10*3/uL (160-400); Red Blood Count 5.15 X10*6/uL (4.20-5.50); White Blood Count 10.7 X10*3/uL (4.8-10.8)
[2025-09-01 12:45] LABS: Alanine Aminotransferase 26 U/L (0-31); Albumin Level 4.8 g/dL (3.5-5.0); Alkaline Phosphatase 77 U/L (39-117); Anion Gap 8 (12-20); Aspartate Amino Transferase 17 U/L (5-31); Blood Urea Nitrogen 9 mg/dL (9-16); Calcium 9.1 mg/dL (8.4-10.2); Carbon Dioxide 26 mmol/L (22-29); Chloride 110 mmol/L (96-108); Creatinine Clr Calc Pharmacy 122.4; Estimated Glomerular Filt Rate > 60; Lipase 17 U/L (8-78); Magnesium 2.0 mg/dL (1.6-2.6); Potassium 3.3 mmol/L (3.3-5.1); Sodium 141 mmol/L (135-145); Total Protein 7.4 g/dL (6.5-8.0)
[2025-09-01 13:01] LABS: Troponin-I High Sensitivity < 2.7 ng/L (<3.5-17.0)
--- OUTSIDE RECORDS SUMMARY | 2025-09-01 14:00 | XMS_ITS | Data Portability ---
Author Organization [facility], [address] Address [address] [place] [address] Assessment No assessment recorded. Plan of Treatment Reminders Order Date Submit Date Provider Last Modified By Organization Details Last Modified Time Details Appointments None recorded. Lab SARS CoV 2 (COVID-19) Ag, QL, IA, upper respirator y specimen 2023 024 [facility] [address], [address] [place] [address], [phone], 19:31:09 rapid flu (A+B) 2023 024 [facility] [address], [address] [place] [address], [phone], 19:31:10 Referral None recorded. Procedures None recorded. Surgeries None recorded. Imaging None recorded. Medication Orders benzonatat e 100 mg capsule 2023 024 [id number], [address] [place], [address], 19:32:48 Patient TargetsNo targets recorded. Patient Instructions Encounter Date Encounter Id Patient Instructions Last Modified By Organization Details Last Modified Time 05/12/2024 [id number] cough: care instructions [email or web address] Not available 05/12/2024 19:31:07 You were seen today for cough. COVID-19 and flu tests are negative. Your symptom is consistent with viral URI. Recommendation as below - Tessalon perles 100 mg every 8 hrs as needed for cough. - Alternatively can continue Dayquil or delsym as needed for cough - Tylenol 1000 mg every 6 hrs as needed for pain/fever/body aches. - Drink plenty of fluids while you are ill- stay hydrated - Rest - don't overexert yourself - this includes sports and any gym routines. Thank you for using [facility] today, please feel free to contact our office if you have any questions or concerns. [email or web address] Not available 05/12/2024 19:33:20 Reason for Referral None Reported. Results Created Date Observation Date Name Description Value Unit Range Abnormal Flag Note LastModifiedBy Organization Detail LastModifiedTime 05/12/20 24 05/12/2024 SARS CoV 2 (COVI D-19) Ag, QL, IA, upper respi rator y speci men Unknown Analyte negati ve Not Available ie [address], [address], 05/12/2024 19:15:34 05/12/20 24 05/12/2024 SARS CoV 2 (COVI D-19) Ag, QL, IA, upper respi rator y speci men Unknown Analyte YES Not Available [address], [address], 05/12/2024 19:15:34 05/12/20 24 05/12/2024 rapid flu (A+B) Unknown Analyte negati ve Not Available [facility] ie [address], [address], 05/12/2024 19:15:47 05/12/20 24 05/12/2024 rapid flu (A+B) Unknown Analyte negati ve Not Available [facility] ie [address], [address], 05/12/2024 19:15:47 05/12/20 24 05/12/2024 rapid flu (A+B) Unknown Analyte YES Not Available [address] [place], [address], 05/12/2024 19:15:47 Result Notes None recorded. Problems Name Problem SNOMED Code Status Onset Date Resolution Date Notes Provider Name and Address Organization Details Recorded Time Cough 60464438 Active 05/12/20 24 RIOS SQUIRES MD [address] [place] [address] [place], [address] , [place] - [facility] 05/12/2024 19:30:47 Problem Notes None recorded. Medical Equipment None Reported. Allergies No known drug allergies Medications Name Sig Start Date Stop Date Status Note LastModified by Organization Details LastModified Time benzonatate 100 mg capsule Take 1 capsule 3 times a day by oral route as needed, for cough. 024 active Not Available Not Available Not Avai lable Vitals Date Recorded Body height Body mass index (BMI) [Percentile] Per age and sex Body mass index (BMI) Body weight Oxygen saturation Heart rate Body temperature Systolic And Diastolic Provider Name and Address Organization Details Last Updated DateTime 4 144.78 cm 97 % 36.8 kg/m2 36334.7 g 99 % 83 /min 99.7 [degF] 113/78 mm[Hg] Sue Campbell [place] - [facility] 4 19:12:38 Social History Question Answer Notes LastModified by Noem[employer] ion Details LastModified Time Tobacco Smoking Status Never Smoker Sue meadows, [place] - [facility] 05/12/2024 19:14:14 Have You Had A Flu Shot This Season? No Information not available 05/12/2024 If No, Would You Like A Flu Shot Today? No Information not available 05/12/2024 What Is Your Relationship Status? Single Information not available 05/12/2024 Are You Passively Exposed To Smoke? No Information no t available 05/12/2024 Have You Recently Traveled Abroad? No Information not available 05/12/2024 Are You Currently In School? No Information not available 05/12/2024 Sex: Unknown Functional Status Question Answer Note LastModified by Organizat ion Details LastModified Time How many times per week do you consume alcohol? 3-4 times per week Information not available 05/12/2024 Do you use any illicit or recreational drugs? No Information not available 05/12/2024 Do you or have you ever used any other forms of tobacco or nicotine? No Information not available 05/12/2024 What is your level of alcohol consumption? Occasional Information not available 05/12/2024 Are you currently employed? Yes Information not available 05/12/2024 Mental Status None recorded. Family History Nothing Reported. Medical History No medical history recorded. Gynecological History Statement/Question Response Date of LMP 04/14/2024 Is there any chance of ? No LMP Definite Obstetrics History GPAL:G 0 P 0 0 0 0 Past Encounters Encounter ID Performer Location Encounter Start Date Encounter Closed Date Diagnosis/Indication Diagnosis SNOMED-CT Code Diagnosis ICD10 Code Diagnosis IMO Codes Diagnosis [id number] [facility] [address] [place] [address] 12/25/2021 16:36:18 12/25/2021 17:09:32 [id number] [place]ES [place] [address] [address] 05/12/2024 18:46:56 05/12/2024 19:35:59 Cough 85761813 R05.9 Likely viral URI. Health Concerns Section Related Observation LastModified by Organization Detai ls LastModified Time None Recorded Concern Status LastModified by Organization Details LastModified Time None Recorded Advance Directives Directive None Recorded Payers Insurance Date Sequence Insurance Name Policy Number Policy Casas Covered Member ID Casas Member ID Guarantor Name 05/15/2024 1 [employer] - HEALTH NET PLAN (MEDICAID HMO) [employer] [facility] [id number] [facility] 05/15/2024 2 [place] [facility] [id number] [facility] Notes Date Note Type Note Provider Name and Address Organization Details Recorded Time 05/12/2024 text/html CoughReported by PatientCough, nasal congestion, n/v, PND, rhinorrhea for 5 day . Also has some dizziness. 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 Partner is also sick. Has tried Dayquil, delsym and Afrin with mild benefits. RIOS SQUIRES MD [address] [place], [address], [place] - [facility] 05/12/2024 19:40:58 OBGyn Episode No OBEpisode recorded.
[2025-09-01 14:33] VITALS: BP 118/62; PULSE 100; RESP 16; TEMP 36.8; O2SAT 98
[2025-09-01 14:41] LABS: D Dimer High Sensitivity 201 NG/ML
--- NOTE | 2025-09-01 15:13 | PC.NURSE ---
Patient presents to ED with LUQ abdominal pain that is radiating up to her shoulder. Patient stated this pain began yesterday.Was unsure it was gas pain so she took Miralax, Tums and ibuprofen with no relief. Patient had BM x2 yesterday. Endorses brief nausea with no emesis. VSS. IV plavced and awaiting CT scan.
[2025-09-01] MEDS: iohexoL 350 MG/ML 100 ML INFUS..BTL IV (16:09)
[2025-09-01 18:22] VITALS: BP 104/59; PULSE 93; RESP 15; TEMP 36.8; O2SAT 98
--- NOTE | 2025-09-01 19:16 | PC.NURSE ---
this rn assumed care of pt, pt resting in stretcher, no acute distress noted. awaiting ed provider
[2025-09-01 20:12] VITALS: BP 104/59; PULSE 93; RESP 15; TEMP 36.8; O2SAT 98
== END 2025-09-01 20:15 | disposition home or self-care (01) ==
PROVIDERS: Physician Assistant Medical; Emergency Provider Emergency Medicine; PCP Family Medicine
DX: R10.12 Left upper quadrant pain (principal); R00.0 Tachycardia, unspecified
CPT/HCPCS: 36415; 71046; 74177; 80053; 83690; 83735; 84484; 84702; 85025; 85379; 93005; 99284; 99285; Q9967

== ENCOUNTER → 2025-09-01 12:02 | Outpatient (BNV) | payer OTHER, SELFPAY | PROVIDERS: Emergency Provider Emergency Medicine; PCP Family Medicine; Visit Provider Radiology Diagnostic Radiology | DX: R10.9 Unspecified abdominal pain (principal); R07.89 Other chest pain | CPT/HCPCS: 71046; 74177 ==

== ENCOUNTER → 2025-09-01 12:03 | Outpatient (BNV) | payer OTHER, SELFPAY | PROVIDERS: Emergency Provider Emergency Medicine; PCP Family Medicine; Visit Provider Internal Medicine | DX: R00.0 Tachycardia, unspecified (principal) | CPT/HCPCS: 93010 ==